=== PATIENT | male | born 1935 | race Caucasian/White ===

== ENCOUNTER → 2017-01-19 | Outpatient (CLI) | payer OTHER | LOC: HYPER 01-01 08:04 | DX: L89.623 Pressure ulcer of left heel, stage 3 (principal); I10 Essential (primary) hypertension; L97.421 Non-pressure chronic ulcer of left heel and midfoot limited to breakdown of skin; K21.9 Gastro-esophageal reflux disease without esophagitis; F32.9 Major depressive disorder, single episode, unspecified; F41.9 Anxiety disorder, unspecified; Z85.828 Personal history of other malignant neoplasm of skin; Z86.018 Personal history of other benign neoplasm; Z96.649 Presence of unspecified artificial hip joint; Z87.891 Personal history of nicotine dependence ==

== ENCOUNTER → 2017-02-10 | Outpatient (CLI) | payer OTHER | LOC: HYPER 06:51 | DX: L97.421 Non-pressure chronic ulcer of left heel and midfoot limited to breakdown of skin (principal); I10 Essential (primary) hypertension; K21.9 Gastro-esophageal reflux disease without esophagitis; F41.9 Anxiety disorder, unspecified; F32.9 Major depressive disorder, single episode, unspecified; Z85.828 Personal history of other malignant neoplasm of skin; Z87.891 Personal history of nicotine dependence ==

== ENCOUNTER → 2017-02-24 | Outpatient (CLI) | payer OTHER ==
[~2017-02-24] MED LIST: ASPIR 8181 MG PO; BUSPIRONE HCL10 MG PO; CENTRUM SILVER1 EAC4 PO; CLARITIN10 MG PO; COLACE100 MG PO; CYMBALTA30 MG PO; FLOMAX0.4 MG PO; FLONASE 0.05%50 MCG NASAL; GENTAMICIN 0.1%15 G2 TOP; IBUPROFEN 200200 M1 PO; LASIX 20 MG TAB20 MG PO; LIORESAL 10 MG10 MG PO; LOTREL 5-10 MG1 EACH PO; MILK OF MA2400 MG/10 PO; NEURONTIN 300300 M1 PO; NORCO 10-325 T1 EACH PO; PEPCID20 MG PO; PLAVIX 75 MG TA75 M1 PO; VITAMIN D2000 UNIT PO; VITAMINC500 PO; ZOCOR20 MG PO; ZOFRAN ODT4 MG PO
== END ==
LOC: HYPER 07:05
DX: L89.623 Pressure ulcer of left heel, stage 3 (principal); L97.421 Non-pressure chronic ulcer of left heel and midfoot limited to breakdown of skin; G71.0 Muscular dystrophy; I10 Essential (primary) hypertension; K21.9 Gastro-esophageal reflux disease without esophagitis; F41.9 Anxiety disorder, unspecified; F32.9 Major depressive disorder, single episode, unspecified; Z85.46 Personal history of malignant neoplasm of prostate; Z85.828 Personal history of other malignant neoplasm of skin; Z96.649 Presence of unspecified artificial hip joint; Z87.891 Personal history of nicotine dependence

== ENCOUNTER 2017-02-25 10:55 | Inpatient (IN) | payer OTHER ==
[~2017-02-25] VITALS: Ht 172.7 cm; Wt 71.3 kg
--- NOTE | ~2017-02-25 | S ---
[facility] [address] [place] [address] SURGICAL PATH RPT PROCEDURE Name: MADYSON MARTIN Room #: 410-P [facility] IN M.R.#: [id number] Admission: 02/25/17 Date of : 37 Discharge: 03/01/17 Report #: [id number] Path Case #: [id number] PATHOLOGY REPORT DRAFT COLLECTION DATE: 02/26/2017 RECEIVED DATE: 03/01/2017 SPECIMEN(S) RECEIVED: Stacie sandoval
--- NOTE | ~2017-02-25 | HC ---
[facility] [place] [address] CONSULTATION Name: MADYSON MARTIN Room #: 309-P ADM IN M.R.#: [id number] Admission: 02/25/17 Attend Phys: Elida Moore Discharge: Date of : 37 Report #: [id number] THIS REPORT FOR: //name// CC: Elida Daniels REASON FOR CONSULTATION: I was asked to evaluate concerning left lower extremity wound infection and cellulitis. HISTORY OF PRESENT ILLNESS: The patient is an 81-year-old with peripheral vascular disease and muscular dystrophy who has had a nonhealing wound to the plantar aspect of his left heel for several months now. He has had peripheral vascular work done by with stenting. This was performed in December. Continues to have nonhealing wound. Over the last several days, he has had increased pain. No definite fever, chills or sweats. Evaluation in the outpatient clinic noted a worsening and is now hospitalized. He has been on oral antibiotics but he is unclear as to what he has been on most recently. Cultures of the wound have revealed Enterococcus previously. ALLERGIES: None known. MEDICATIONS: As noted on his AUG. He was started on Zosyn. PAST MEDICAL HISTORY: Muscular dystrophy, hyperlipidemia, hypertension, depression. FAMILY HISTORY: Noncontributory. SOCIAL HISTORY: Lives in halfway. Nonsmoker. No significant alcohol intake. REVIEW OF SYSTEMS: No cardiopulmonary, GI or complaints. PHYSICAL EXAMINATION: VITAL SIGNS: Afebrile and hemodynamically stable. GENERAL: He is alert and cooperative and pleasant, in no acute distress. He had upper and lower extremity weakness. EXTREMITIES: He had inversion of both feet. There was a fairly deep wound with some satellite lesions laterally involving the plantar aspect. This area was exquisitely tender. Pulses were diminished in the foot. He had erythema that extended up to calf and medial thigh. No tenderness in his groin. Pulses in the femoral were 2+ in the dorsalis pedis. 2+ posterior tib. HEENT: Unremarkable. CHEST: Clear. HEART: Regular. ABDOMEN: Soft and nontender. [facility] [address] [place] [address] CONSULTATION Name: [facility] Room #: 309-P ADM IN M.R.#: [id number] Admission: 02/25/17 Attend Phys: Elida Moore Discharge: Date of : 37 Report #: [id number] LABORATORY STUDIES: Sodium 129, potassium 3.7, bicarbonate 28, creatinine 0.3. Hemoglobin 12.6; white count 7.1; platelet count 324,000. Arterial studies showed monophasic flow in the left leg. IMPRESSION: Nonhealing left plantar foot wound with now acute cellulitis. Recommend continuing Zosyn for review of outside records that Enterococcus, pseudomonas and diphtheroids from his previous cultures. I suspect the acute worsening is streptococcal in nature. He will have followup with Interventional Radiology. May ultimately need further surgical debridement or bypass. <ELECTRONICALLY SIGNED> By: Indio El MD 02/26/17 [id number] Indio El MD /nt
[2017-02-25 11:45] VITALS: BP 98/60
[2017-02-25] MEDS ORDERED: ASPIR 8181 MG PO (12:19)
[2017-02-25] MEDS ORDERED: BUSPIRONE HCL10 MG PO (12:20)
[2017-02-25] MEDS ORDERED: LIORESAL 10 MG10 MG PO (12:20)
[2017-02-25] MEDS ORDERED: CLARITIN10 MG PO (12:21)
[2017-02-25] MEDS ORDERED: VITAMIN D2000 UNIT PO (12:21)
[2017-02-25] MEDS ORDERED: FLOMAX0.4 MG PO (12:22)
[2017-02-25] MEDS ORDERED: COLACE100 MG PO (12:22)
[2017-02-25] MEDS ORDERED: CYMBALTA30 MG PO (12:22)
[2017-02-25] MEDS ORDERED: FLONASE 0.05%50 MCG NASAL (12:22)
[2017-02-25] MEDS ORDERED: NEURONTIN 300300 M1 PO (12:23)
[2017-02-25] MEDS ORDERED: GENTAMICIN 0.1%15 G2 TOP (12:24)
[2017-02-25] MEDS ORDERED: IBUPROFEN 200200 M1 PO (12:25)
[2017-02-25] MEDS ORDERED: NORCO 10-325 T1 EACH PO (12:25)
[2017-02-25] MEDS ORDERED: LASIX 20 MG TAB20 MG PO (12:26)
[2017-02-25] MEDS ORDERED: LOTREL 5-10 MG1 EACH PO (12:26)
[2017-02-25] MEDS ORDERED: CENTRUM SILVER1 EAC4 PO (12:27)
[2017-02-25] MEDS ORDERED: MILK OF MA2400 MG/10 PO (12:27)
[2017-02-25] MEDS ORDERED: PEPCID20 MG PO (12:28)
[2017-02-25] MEDS ORDERED: ZOCOR20 MG PO (12:29)
[2017-02-25] MEDS ORDERED: VITAMINC500 PO (12:29)
[2017-02-25] MEDS ORDERED: PLAVIX 75 MG TA75 M1 PO (12:29)
[2017-02-25] MEDS ORDERED: ZOFRAN ODT4 MG PO (12:30)
[2017-02-25 13:00] LABS: HEMOGLOBIN 12.6 gm/dL (14.0-18.0); MCH 31.6 pg (26.0-34.0); PLATELET COUNT 324 thou/uL (150-400); RBC 3.98 mil/uL (4.50-6.00); RDW 13.3 % (10.5-14.5); WBC 7.1 thou/uL (4.0-11.0)
[2017-02-25 13:03] LABS: MANUAL DIFF YES
[2017-02-25 13:14] LABS: CALCIUM 8.5 mg/dL (8.5-10.1); CREATININE 0.3 mg/dL (0.7-1.3); POTASSIUM 3.7 mmol/L (3.5-5.1)
[2017-02-25 13:41] LABS: ABSOLUTE NEUTROPHILS 4.5 thou/uL (1.4-8.2); TOTAL CELL COUNT 100
[2017-02-25 19:20] VITALS: BP 138/84
[2017-02-25 23:14] VITALS: BP 129/81
[2017-02-26 03:02] VITALS: BP 97/59
[2017-02-26 08:25] VITALS: BP 106/72
[2017-02-26 16:13] VITALS: BP 96/63
[2017-02-26 19:12] VITALS: BP 122/75
[2017-02-27 04:12] VITALS: BP 114/81
[2017-02-27 07:15] LABS: ABSOLUTE NEUTROPHILS 5.3 thou/uL (1.4-8.2); BASOPHILS 0.7 % (0.0-2.0); EOSINOPHILS 3.8 % (0.0-3.0); HEMATOCRIT 36.3 % (42.0-52.0); HEMOGLOBIN 12.4 gm/dL (14.0-18.0); LYMPHOCYTES 22.4 % (24.0-44.0); MCH 31.8 pg (26.0-34.0); MCHC 34.1 g/dL (28.0-37.0); MCV 93.2 fL (80.0-100.0); MONOCYTES 10.8 % (1.0-8.0); PLATELET COUNT 325 thou/uL (150-400); POLYS 62.3 % (36.0-66.0); RBC 3.89 mil/uL (4.50-6.00); RDW 13.5 % (10.5-14.5); WBC 8.5 thou/uL (4.0-11.0)
[2017-02-27 07:16] LABS: MANUAL DIFF NO
[2017-02-27 07:24] LABS: CALCIUM 8.9 mg/dL (8.5-10.1); CREATININE 0.3 mg/dL (0.7-1.3); POTASSIUM 4.2 mmol/L (3.5-5.1)
[2017-02-27 07:44] VITALS: BP 122/82
[2017-02-27 17:23] VITALS: BP 119/68
[2017-02-27 19:33] VITALS: BP 112/70
[2017-02-28 03:59] VITALS: BP 123/64
[2017-02-28 06:01] LABS: HEMATOCRIT 35.9 % (42.0-52.0); HEMOGLOBIN 12.2 gm/dL (14.0-18.0); MCH 31.3 pg (26.0-34.0); MCHC 33.9 g/dL (28.0-37.0); MCV 92.3 fL (80.0-100.0); PLATELET COUNT 343 thou/uL (150-400); RBC 3.89 mil/uL (4.50-6.00); RDW 13.2 % (10.5-14.5); WBC 9.3 thou/uL (4.0-11.0)
[2017-02-28 06:06] LABS: CALCIUM 8.5 mg/dL (8.5-10.1); CREATININE 0.2 mg/dL (0.7-1.3)
[2017-02-28 06:11] LABS: MANUAL DIFF YES
[2017-02-28 07:50] LABS: ABSOLUTE NEUTROPHILS 6.5 thou/uL (1.4-8.2); ANISOCYTOSIS 1+; TOTAL CELL COUNT 100
[2017-02-28 07:51] LABS: POLYCHROMASIA OCCASIONAL
[2017-02-28 08:00] VITALS: BP 112/75
[2017-02-28 16:15] VITALS: BP 115/68
[2017-02-28 19:49] VITALS: BP 163/85
[2017-03-01 04:00] VITALS: BP 133/84
[2017-03-01 05:25] LABS: ABSOLUTE NEUTROPHILS 9.3 thou/uL (1.4-8.2); BASOPHILS 0.3 % (0.0-2.0); EOSINOPHILS 0.8 % (0.0-3.0); HEMATOCRIT 36.6 % (42.0-52.0); HEMOGLOBIN 12.5 gm/dL (14.0-18.0); LYMPHOCYTES 9.7 % (24.0-44.0); MCH 31.1 pg (26.0-34.0); MCHC 34.2 g/dL (28.0-37.0); PLATELET COUNT 370 thou/uL (150-400); POLYS 78.2 % (36.0-66.0); RBC 4.02 mil/uL (4.50-6.00); RDW 13.4 % (10.5-14.5); WBC 11.8 thou/uL (4.0-11.0)
[2017-03-01 05:33] LABS: MANUAL DIFF NO
[2017-03-01 05:40] LABS: CREATININE 0.3 mg/dL (0.7-1.3); POTASSIUM 3.5 mmol/L (3.5-5.1)
[2017-03-01 07:30] VITALS: BP 132/81
[2017-03-01] MEDS ORDERED: TRAMADOL 50 MG50 MG PO (11:25)
[2017-03-01] MEDS ORDERED: AUGMENTIN 875-1 EACH PO (14:31)
[2017-03-01 15:15] VITALS: BP 144/85
== END 2017-03-01 18:30 | DRG 603 ==
LOC: 3N 10:55 → 4N 11:13 → 3N 11:13 → 4N 02-27 17:50
PROVIDERS: Family Medicine
PROC: 0J9R3ZZ Drainage of Left Foot Subcutaneous Tissue and Fascia, Percutaneous Approach (ICD-10-PCS; principal; 2017-02-26)
DX: L03.116 Cellulitis of left lower limb (principal); G71.0 Muscular dystrophy; L02.612 Cutaneous abscess of left foot; L97.423 Non-pressure chronic ulcer of left heel and midfoot with necrosis of muscle; E78.5 Hyperlipidemia, unspecified; I10 Essential (primary) hypertension; I73.9 Peripheral vascular disease, unspecified; B07.0 Plantar wart; F32.9 Major depressive disorder, single episode, unspecified; E87.6 Hypokalemia; Z90.49 Acquired absence of other specified parts of digestive tract
CPT/HCPCS: 10096; 10790